=== PATIENT | male | born 1980 | race Caucasian/White ===

== ENCOUNTER → 2020-10-12 10:13 | Outpatient (CLI) | payer OTHER, SELFPAY ==
--- NOTE | ~2020-10-12 | US_ITS ---
EXAMINATION: US abdomen complete DATE: 10/12/2020 11:30 INDICATION: Right upper quadrant abdominal pain TECHNIQUE: Multiple grayscale and Doppler ultrasound images of the abdomen were obtained. COMPARISON: None available FINDINGS: Bowel gas obscures visualization of the pancreas. The visualized portions of the pancreas a re unremarkable. The liver demonstrates increased echogenicity, heterogenous echotexture, and decreas ed through transmission. No surface nodularity. Normal hepatopetal flow in the main portal vein. The gallbladder is normal with no abnormal wall thickening, pericholecystic fluid or stones. The normal c ommon bile duct measures 3 mm. There was no sonographic Florez sign. The visualized portions of the a viviana and inferior vena cava are normal. The right kidney measures 15.2 x 7.6 x 7.1 cm. The left kidney measures 13.9 x 6.5 x 6.9 cm. The kidn eys demonstrate normal parenchymal echogenicity. There is no hydronephrosis. The spleen is normal in appearance and measures 11.5 cm. IMPRESSION: 1. No sonographic correlate for the patient's symptoms. 2. Diffuse hepatic steatosis. Reviewed, dictated and finalized at location B.
--- NOTE | ~2020-10-12 | XR_ITS ---
EXAMINATION: XR UGIAC wo kub DATE: 10/12/2020 12:09 INDICATION: Right upper quadrant pain and nausea TECHNIQUE: The patient drank thick barium, gas-producing crystals, and thin barium. Fluoroscopy of th e esophagus, stomach, and proximal small bowel were performed. Fluoroscopy exposure time was 1.5 lorna kam. The DAP for this procedure was 12.82 Gycm2. COMPARISON: None. FINDINGS: There is no mass or stricture of the esophagus. Esophageal motility is normal. There is no hiatal hernia. There was no gastroesophageal reflux with provocative maneuvers. The stomach and proxi mal small bowel show normal folding patterns. IMPRESSION: 1. Unremarkable upper GI Reviewed, dictated and finalized at location B. IMPRESSION: 1. Unremarkable upper GI
== END ==
PROVIDERS: Visit Provider Emergency Medicine
DX: R10.9 Unspecified abdominal pain (principal); K21.9 Gastro-esophageal reflux disease without esophagitis; K76.0 Fatty (change of) liver, not elsewhere classified
CPT/HCPCS: 74246; 76700

== ENCOUNTER 2020-11-24 16:52 | Emergency (ER) | payer OTHER, SELFPAY ==
--- NOTE | ~2020-11-24 | XR_ITS ---
EXAMINATION: XR chest 2V DATE: 11/24/2020 17:25 INDICATION: Asthma presenting with mid sternal chest pain TECHNIQUE: PA and lateral views of the chest were obtained. COMPARISON: None FINDINGS: The lungs are clear with no focal airspace opacities, pulmonary edema, pleural effusion or pneumothor ax. The cardiomediastinal silhouette is normal. Mild thoracic spondylosis. IMPRESSION: 1. No acute cardiopulmonary disease. Reviewed, dictated and finalized at location A.
--- NOTE | 2020-11-24 16:56 | ECG_ITS ---
Measurements Intervals Jeffrey Rate: 85 P: 39 MA: 158 QRS: 60 QRSD: 88 T: 15 QT: 357 QTc: 427 Interpretive Statements SINUS RHYTHM NORMAL ECG Electronically Signed On 11-24-2020 17:05:13 CDT by Lyndon Zamorano D.O.
[2020-11-24 16:57] VITALS: BP 160/92; PULSE 86; RESP 16; TEMP 37.1; O2SAT 96
[2020-11-24 17:11] LABS: Basophils Percent Auto 0.5 % (0.2-1.2); Eosinophils Absolute Auto 0.1 K/mm3 (0-0.3); Eosinophils Percent Auto 1.4 % (0-4.4); Hematocrit 46.3 % (42.0-52.0); Hemoglobin 15.6 g/dL (14.0-18.0); Immature Granulocyte Absolute 0.01 K/mm3 (0.00-0.031); Immature Granulocyte Percent A 0.1 % (0-0.5); Lymphocytes Absolute Auto 1.76 K/mm3 (0.9-3.2); Lymphocytes Percent Auto 20.2 % (18.3-44.2); Mean Corpuscular HGB Conc 33.7 g/dl (32-36); Mean Corpuscular Hemoglobin 30.6 pg (26-34); Mean Corpuscular Volume 90.8 fl (80-100); Mean Platelet Volume 8.8 fl (7.4-10.4); Monocytes Absolute Auto 0.7 K/mm3 (0.1-0.6); Monocytes Percent Auto 7.8 % (2.6-8.5); Neutrophils Absolute Auto 6.1 K/mm3 (1.3-6.7); Platelet Count Result 328 k/mm3 (150-375); White Blood Count 8.7 K/mm3 (4.5-10.0)
[2020-11-24 17:20] LABS: Anion Gap 12 mmol/L (8-16); Blood Urea Nitrogen 11 mg/dL (9-20); Calcium 9.7 mg/dL (8.4-10.2); Carbon Dioxide 22 mmol/L (22-30); Chloride 106 mmol/L (98-107); Estimated CRCL calculation 106 ml/min; Estimated Glomerular Filt Rate > 60; Glucose 98 mg/dL (65-110); Potassium 3.4 mmol/L (3.4-5.0); Sodium 140 mmol/L (137-145)
[2020-11-24 17:21] LABS: INR 0.9
[2020-11-24 17:22] LABS: Partial Thromboplastin Time 24.1 SECONDS (22.3-36.8)
[2020-11-24 17:32] LABS: Troponin I < 0.012 ng/mL (0.000-0.034)
--- NOTE | 2020-11-24 19:50 | PC.NURSE ---
pt states he's going to step outside for some fresh air at this time. seen walking out to the parking lot.
[2020-11-24 20:51] LABS: Troponin I < 0.012 ng/mL (0.000-0.034)
[2020-11-24 21:36] VITALS: BP 143/80; PULSE 77; PULSE 82; RESP 15; O2SAT 98
[2020-11-24 22:50] VITALS: BP 128/74; PULSE 71; RESP 20; O2SAT 93
--- NOTE | 2020-11-24 23:08 | ED.CHESTPAIN ---
HPI - Chest Pain General Chief Complaint: Chest Pain Stated Complaint: cp Time Seen by Provider: 11/24/20 21:26 Source: patient and RN notes reviewed Mode of arrival: ambulatory Limitations: no limitations History of Present Illness HPI narrative: 40 years old white male presents with left chest pain and a productive cough started 3 days ago. Patient been not feeling well, feeling tired. History of asthma on albuterol treatment. Today work-up with fatigue and weakness. Patient is fully vaccinated with COVID-19. Patient is not sure if he been exposed to anybody with COVID-19 or not. Patient tested negative for Covid infection yesterday. Currently patient is not feeling well with intermittent coughing. No family history of coronary artery disease, patient does not smoke, drinks occasionally, does not use drugs. History of hypertension Review of Systems Review of Systems: CONSTITUTIONAL: Denies fever, chills, or sweats. EYES: Denies visual changes, redness, or discharge. ENT: Denies rhinorrhea, congestion, sore throat, or otalgia. CARDIOVASCULAR: Denies chest pain, palpitations, or edema. RESPIRATORY: Denies cough or dyspnea. GASTROINTESTINAL: Denies abdominal pain, nausea, vomiting, or diarrhea. GENITOURINARY: Denies dysuria or hematuria. SKIN: Denies rash or itching. MUSCULOSKELETAL: Denies back pain, joint pain, or myalgia. NEUROLOGIC: Denies headache, numbness, or weakness. PSYCHIATRIC: Denies anxiety or depression. Exam Narrative: General appearance: Well-developed, well-nourished Skin: Normal color Head: Normocephalic, nontraumatic Eyes: Clear conjunctiva ENT: Oropharynx normal, ears normal, nose normal Neck: Supple, nontender Chest and respiratory: Airway patent, no respiratory distress, no accessory muscle use Heart: Regular rate/rhythm Abdomen: Soft, nontender, no organomegaly, quiet bowel sounds Vascular: Normal peripheral pulses, normal capillary refill. Musculoskeletal: Normal range of motion, nontender back Neurologic: Alert and oriented ?3, [address] is normal as tested, no gross motor deficit Course Course Emergency Course: Stable Vital Signs Vital signs: Vital Signs Temperature 37.1 C 11/24/20 16:57 Pulse Rate 86 11/24/20 16:57 Respiratory Rate 16 11/24/20 16:57 Blood Pressure 160/92 H 11/24/20 16:57 Pulse Oximetry 96 11/24/20 16:57 Temperature 37.1 C 11/24/20 16:57 Pulse Rate 71 11/24/20 22:50 Respiratory Rate 20 11/24/20 22:50 Blood Pressure 128/74 11/24/20 22:50 Pulse Oximetry 93 11/24/20 22:50 MDM - Chest Pain MDM Narrative Medical decision making narrative: Patient does not have coronary artery disease risk factors. Viral infection is my concern. Although patient had negative rapid Covid test, my plan to get PCR ONE and discharge patient with decongestant and anticough medication. Lab Data Result diagrams: 11/24/20 17:03 11/24/20 17:02 Labs: Lab Results 11/24/20 11/24/20 11/24/20 Range/Units 17:02 17:02 17:03 WBC 8.7 (4.5-10.0) K/mm3 RBC 5.10 (4.6-6.20) M/mm3 Hgb 15.6 (14.0-18.0) g/dL Hct 46.3 (42.0-52.0) % MCV 90.8 (80-100) fl MCH 30.6 (26-34) pg MCHC 33.7 (32-36) g/dl RDW 12.0 (11.5-14.5) % Plt Count 328 (150-375) k/mm3 MPV 8.8 (7.4-10.4) fl Immature Gran % (Auto) 0.1 (0-0.5) % Neut % (Auto) 70.0 (45.5-73.1) % Lymph % (Auto) 20.2 (18.3-44.2) % Swift % (Auto) 7.8 (2.6-8.5) % Eos % (Auto) 1.4 (0-4.4) % Baso % (Auto) 0.5 (0.2-1.2) % Lymph # (Auto) 1.76 (0.9-3.2) K/mm3 Swift # (Auto) 0.7 H (0.1-0.6) K/mm3 Eos # (Auto) 0.1 (0-0.3) K/mm3 Baso # (Auto) 0.
[2020-11-24 23:45] VITALS: BP 123/87; PULSE 78; RESP 14; O2SAT 94
[2020-11-25 15:32] LABS: SARS-CoV-2 RNA PCR Negative
== END 2020-11-24 23:45 | disposition home or self-care (01) ==
PROVIDERS: Emergency Provider Emergency Medicine; PCP Emergency Medicine
DX: R07.89 Other chest pain (principal); J98.8 Other specified respiratory disorders; Z20.822 Contact with and (suspected) exposure to COVID-19
CPT/HCPCS: 36415; 71046; 80048; 84484; 85025; 85610; 85730; 93005; 99284; C9803; U0003; U0005

== ENCOUNTER → 2021-11-03 08:35 | Outpatient (CLI) | payer SELFPAY ==
--- NOTE | ~2021-11-03 | CT_ITS ---
EXAMINATION: CT abdomen pelvis w con DATE: 11/03/2021 09:11 INDICATION: Burning in the anal and groin areas for one month. Pelvic pressure. TECHNIQUE: Computed tomography (CT) of the abdomen and pelvis was performed with 100 CC Omnipaque 350 intravenous contrast. Automated exposure control and iterative reconstruction technique were employe d. Exam dose: 1298.79 mGy-cm total exam DLP. COMPARISON: 10/12/2020 complete abdominal ultrasound examination FINDINGS: The lung bases are clear of infiltrate or consolidation. Normal heart size. No pericardial or pleural effusion. Prominent diffuse hepatic steatosis. No hepatic space-occupying mass lesion. The gallbladder appears unremarkable. No bile duct or pancreatic duct dilatation. No pancreatic mass lesion or calcification. Normal splenic size. Normal morphology of the adrenal glands. No renal mass lesion or urinary tract calculus or hydroureteronephrosis. Moderate prostate enlargement. There is moderate diffuse bladder wall thickening which may be due to prostate enlargement and/or relatively underdistended urinary bladder. Small fat-containing left inguinal hernia. Normal caliber of the abdominal aorta. No intraperitoneal or retroperitoneal or pelvic mass lesion or adenopathy or ascites. There are some shoddy nonenlarged inguinal lymph nodes bilaterally. No renal mass lesion or inflammatory change in the perianal area is evident. No bowel obstruction, bowel wall thickening, pneumatosis or intraperitoneal free air. No suspicious osteolytic or osteoblastic lesions. IMPRESSION: Prominent hepatic steatosis Moderate prostate enlargement Small fat-containing left inguinal hernia Reviewed, dictated and finalized at Location A. Reviewed, dictated and finalized at location B.
[2021-11-09 10:31] LABS: Estimated Glomerular Filt Rate > 60
== END ==
PROVIDERS: PCP Emergency Medicine; Visit Provider Emergency Medicine
DX: K62.89 Other specified diseases of anus and rectum (principal); K76.0 Fatty (change of) liver, not elsewhere classified; N40.0 Benign prostatic hyperplasia without lower urinary tract symptoms; K44.9 Diaphragmatic hernia without obstruction or gangrene
CPT/HCPCS: 36415; 74177; 82565; Q9967

== ENCOUNTER 2022-03-07 08:42 | Outpatient (CLI) | payer OTHER, SELFPAY ==
--- NOTE | 2022-04-01 17:40 | WPDHOMESLEEP ---
Sleep Study - Home Unattended Date of Study: 03/07/22 Ordering Provider: Leonor Toribio NP Interpreting Provider: Gracy Coley, DO Home Sleep Study Type: Watch PAT Height: 1.78 m Weight: 108.862 kg Body Mass Index: 34.4 Neck Circumference (inches): 17.5 [place]: 3 Reason for Sleep Study Previously diagnosed with GLORIA. Had CPAP. Had GLORIA surgery in 2006. Now has unrefreshing sleep, morning headaches, witnessed apneas Sleep History The patient is a 41-year-old male with hypertension, GERD, anxiety, asthma, seasonal allergies, history of tobacco use and previously diagnosed sleep apnea that had a sleep study ordered by his primary care for evaluation of sleep apnea. The patient frequently awakens from sleep short of breath. He occasionally awakens at night with heartburn, belching or cough. He frequently snores loud enough that others complain. He occasionally has trouble sleeping when he has a cold. He frequently wakes up gasping for air throughout the night. He occasionally has breathing problems at night observed by himself or others. He occasionally sweats excessively at night. He occasionally has heart palpitations or irregular heartbeats during the night. He denies falling asleep during the day and while driving. He denies cataplexy. He occasionally has trouble at school or work due to sleepiness. He rarely feels unable to move while waking up or falling asleep. He occasionally experiences vivid dreamlike scenes upon awakening or falling asleep. He occasionally feels afraid of going to sleep. He occasionally has nightmares and occasionally remembers his dreams. He occasionally has thoughts racing through his mind. He occasionally feels sad or depressed. He frequently has anxiety. He frequently has muscular tension. He frequently notices parts of his body jerk. He occasionally kicks during the night. He occasionally has crawling and aching feelings in his legs but rarely has leg pain during the night. He occasionally grinds his teeth during sleep but rarely awakens with morning jaw pain. He is occasionally bothered by pain during the day but never awakened by pain during the night. He frequently wakes up feeling stiff in morning. He occasionally wakes up with sore or achy muscles. He occasionally wakes up pain in the neck, spine other joints. The patient goes to bed between 10-11 p.m. on weekdays and between midnight to 2:00 a.m. on the weekends. He can take him 30 minutes to 2-1/2 hours to fall asleep. He wakes up 1-2 times throughout the night to urinate. He can take him 30 minutes to several hours to fall back asleep. He wakes up at 6:00 a.m. on weekdays and between 7-8 a.m. on the weekends. He typically gets 5-6 hours of sleep per night. He stays in bed for 10-20 minutes after waking up in the morning. He currently lives with his and children. He does not consume any caffeinated beverages within 2 hours of bedtime. He does not engage in physical exercise before bedtime. He will watch television before falling asleep. He denies taking naps in the afternoon with eating. He drinks 2 caffeinated beverages per day. He drinks 1-2 alcoholic beverages per week. He quit smoking cigarettes in 2002. He denies recreational drug use. [facility] Past Medical History Medical History Abnormal CT scan Allergies Anxiety Anxiety Asthma Asthma BMI 33.0-33.9,adult Chronic GERD COVID-19 (~01/29/22) Encounter to establish care Erectile dysfunction Excess sun exposure Fatigue Fatty liver Headache History of obstructive sleep apnea HTN (hypertension) Hx of skin malignancy Hypersomnia Hypertension IBS (irritable bowel syndrome) GLORIA (obstructive sleep apnea) Snoring Surgical History Surgical History H/O colonoscopy H/O endoscopy H/O hernia repair H/O uvulectomy Family History Family History (Re
[2022-04-01 17:53] VITALS: BMI 34.4
== END 2022-03-09 10:29 | disposition home or self-care (01) ==
LOC: ANHCSM 08:44
PROVIDERS: PCP Nurse Practitioner Family; Visit Provider Nurse Practitioner Family
DX: G47.10 Hypersomnia, unspecified (principal); R06.83 Snoring; G47.33 Obstructive sleep apnea (adult) (pediatric)
CPT/HCPCS: 95800

== ENCOUNTER 2022-11-07 01:29 | Day surgery (SDC) | payer OTHER, SELFPAY ==
[2022-10-27 11:26] VITALS: BMI 29.9
--- NOTE | 2022-11-04 17:36 | WPDANESEPP ---
Anes - Eval Pre Procedure Procedure: Operation Date: 11/07/22 11:00 Proposed Procedures p Esophagogastroduodenoscopy & Colonoscopy - Per Myers MD Date/Time: 11/04/22 17:36 Pre Op Diagnosis: heartburn, abdominal distension, rectal bleed, Patient Data Age: 42 Gender: M Height: 1.8 m Weight: 97.5 kg Allergies Allergy/AdvReac Type Severity Reaction Status Date / Time Penicillins Allergy Unknown Unknown Verified 10/27/22 11:25 Home Medications Medication Instructions Recorded Confirmed Type albuterol sulfate 90 mcg/actuation 1 inh inhalation Q6H 01/20/22 10/27/22 History aerosol inhaler amlodipine 2.5 mg tablet 2.5 mg PO DAILY #90 tabs 01/20/22 10/27/22 Rx cetirizine 10 mg tablet (Zyrtec) 10 mg PO DAILY PRN Allergy Symptoms 01/20/22 10/27/22 History sildenafil [Viagra] PO 01/20/22 09/26/22 History fluticasone 500 mcg-salmeterol 50 1 inh inhalation Q12H #60 ea 04/06/22 10/27/22 Rx mcg/dose blistr powdr for inhalation (Advair Diskus) losartan 100 1 tablet PO DAILY #90 tabs 04/06/22 10/27/22 Rx mg-hydrochlorothiazide 25 mg tablet omeprazole 40 mg capsule,delayed 40 mg PO DAILY #30 caps 09/26/22 10/27/22 Rx release sodium,potassium,mag sulfates 17.5 See Rx Instructions PO .COMPLEX 10/06/22 10/27/22 Rx gram-3.13 gram-1.6 gram oral soln #354 mL (Suprep Bowel Prep Kit) bupropion HCl 150 mg 24 hr tablet, 150 mg PO QAM #90 tabs 10/17/22 10/27/22 Rx extended release (Wellbutrin XL) Patient hx anesthesia problems: none Family hx anesthesia problems: none Results Review: All pre-operative results and documents have been reviewed as part of the pre-operative evaluation. REPLACED BY [facility] Past Medical History Medical History (Updated 09/26/22 @ 12:07 by Valeria Martinez APRN) Abnormal CT scan Allergies Altered bowel habits Anxiety Anxiety Asthma Asthma Bloating BMI 31.0-31.9,adult BMI 33.0-33.9,adult Bright red blood per rectum Chronic GERD COVID-19 (~01/29/22) Elevated fasting glucose Encounter to establish care Erectile dysfunction Excess sun exposure Fatigue Fatty liver Headache Heartburn History of obstructive sleep apnea HTN (hypertension) Hx of skin malignancy Hyperlipidemia Hypersomnia Hypertension IBS (irritable bowel syndrome) Mucus in stool Obesity (BMI 30.0-34.9) GLORIA (obstructive sleep apnea) Pain of right scapula Proteinuria Snoring Surgical History Surgical History H/O colonoscopy H/O endoscopy H/O hernia repair H/O uvulectomy Family History Family History Mother Alcoholism Depression Anxiety Grandparent Alcoholism Cancer Heart disease Cerebrovascular accident Father Cancer Diabetes mellitus Hypertension Heart disease Other Lung cancer Social History Social History Smoking status: Former smoker Tobacco type: cigarettes Alcohol intake: current Alcohol use details: socially Substance use: never Substance use type: does not use Lack of Transportation: No Lack of Food: Never True Current Housing: I Have Housing Concerned About Future Housing: No Difficulty Paying Gas/Electric Bills: No Difficulty Paying for Meds: No Currently Unemployed: No Education: Master's Degree or Higher Difficulty w/ Childcare or Family Care: No Living arrangements: with family Occupation/Education: occupation Additional occupation/education comments: [employer] Spiritual care concerns: No Exam Day of Procedure 11/04/22 17:36
[2022-11-07 09:51] VITALS: BP 146/90; PULSE 84; RESP 18; TEMP 36.3; O2SAT 99
[2022-11-07] MEDS: LACTATED RINGERS 1,000 ML 150 ML IV CONT (09:53)
--- NOTE | 2022-11-07 10:29 | PM.HPGS ---
History of Present Illness History of Present Illness Consent: Risks, benefits, and alternatives have been discussed and questions answered. Patient agrees to proceed with procedure. Chief complaint: abdominal pain, change in bowel habit Narrative: Giovani Thompson is a 42 year old male Referred for both colonoscopy an EGD. Patient has had difficulty with his bowel habits for many years. He has regular bowel movements PE. Frequent mucus stools. Sometimes will have intermittent diarrhea. Occasionally will have streaks of blood in it. He complains rather vague epigastric discomfort. In the past has been treated for possible acid reflux. He may have had heartburn in the past but denies a strict heartburn at present. Medications included trial of omeprazole 40mg p.o. daily which appears to help the heartburn. He states while in the he had a colonoscopy and EGD. The colonoscopy apparently was unremarkable. States an EGD performed elsewhere several years ago revealed gastric polyps. patient's family history is significant for an uncle with ulcerative colitis. Patient presents today for both colonoscopy and EGD. Review of Systems Review of Systems: Review of systems noncontributory. [facility] Past Medical History Medical History (Updated 09/26/22 @ 12:07 by Valeria Martinez APRN) Abnormal CT scan Allergies Altered bowel habits Anxiety Anxiety Asthma Asthma Bloating BMI 31.0-31.9,adult BMI 33.0-33.9,adult Bright red blood per rectum Chronic GERD COVID-19 (~01/29/22) Elevated fasting glucose Encounter to establish care Erectile dysfunction Excess sun exposure Fatigue Fatty liver Headache Heartburn History of obstructive sleep apnea HTN (hypertension) Hx of skin malignancy Hyperlipidemia Hypersomnia Hypertension IBS (irritable bowel syndrome) Mucus in stool Obesity (BMI 30.0-34.9) GLORIA (obstructive sleep apnea) Pain of right scapula Proteinuria Snoring Surgical History Surgical History H/O colonoscopy H/O endoscopy H/O hernia repair H/O uvulectomy Family History Family History Mother Alcoholism Depression Anxiety Grandparent Alcoholism Cancer Heart disease Cerebrovascular accident Father Cancer Diabetes mellitus Hypertension Heart disease Other Lung cancer Social History Social History Smoking status: Former smoker Tobacco type: cigarettes Alcohol intake: current Alcohol use details: socially Substance use: never Substance use type: does not use Lack of Transportation: No Lack of Food: Never True Current Housing: I Have Housing Concerned About Future Housing: No Difficulty Paying Gas/Electric Bills: No Difficulty Paying for Meds: No Currently Unemployed: No Education: Master's Degree or Higher Difficulty w/ Childcare or Family Care: No Living arrangements: with family Occupation/Education: occupation Additional occupation/education comments: [employer] Spiritual care concerns: No Meds Home Medications and Allergies Home Medications Medication Instructions Recorded Confirmed Type albuterol sulfate 90 mcg/actuation 1 inh inhalation Q6H 01/20/22 11/07/22 History aerosol inhaler amlodipine 2.5 mg tablet 2.5 mg PO DAILY #90 tabs 01/20/22 11/07/22 Rx cetirizine 10 mg tablet (Zyrtec) 10 mg PO DAILY PRN Allergy Symptoms 01/20/22 11/07/22 History sildenafil [Viagra] 1 tablet PO DAILY PRN Erectile 01/20/22 11/07/22 History Dysfunction fluticasone 500 mcg-salmeterol 50 1 inh inhalation Q12H #60 ea 04/06/22 11/07/22 Rx mcg/dose blistr powdr for inhalation (Advair Diskus) losartan 100 1 tablet PO DAILY #90 tabs 04/06/22 11/07/22 Rx mg-hydrochlorothiazide 25 mg tablet omeprazole 40 mg capsule,delayed 40 mg PO DAILY #30 caps 09/26/22 11/07/22 Rx
--- NOTE | 2022-11-07 10:37 | P.PNAN_ITS ---
Anes - Eval Final PreProcedure Day of Procedure 11/07/22 10:37 Patient weight: overweight Heart: regular rate and rhythm Lungs: clear to auscultation Airway: Mallampati scale class II Neurological: alert and oriented Last oral intake: >/= 8 hours ASA classification: III Emergent: no Anesthetic plan: proceed Anesthesia type and monitoring: general GIVS and standard monitoring Results Review: All pre-operative results and documents have been reviewed as part of the pre- operative evaluation. Informed Consent: The patient's anesthetic plan and its attendant risks and benefits were discussed with the patient/family/POA. Questions were solicited and answers provided to the satisfaction of the patient/family/POA.
--- NOTE | 2022-11-07 11:20 | SUR.OPER ---
EGD began at 1113 and ended at 1116. Colonoscopy began at 1125.
[2022-11-07] MEDS: SIMETHICONE ORAL SUSPENSION 20 MG/0.3 ML 30 ML BOTTLE 0.6 ML IRRIGATION (11:29)
[2022-11-07 11:38] VITALS: BP 119/73; PULSE 96; RESP 18; O2SAT 96
[2022-11-07 11:48] VITALS: BP 124/75; PULSE 75; RESP 25; O2SAT 95
[2022-11-07 11:58] VITALS: BP 125/76; PULSE 70; RESP 18; O2SAT 93
== END 2022-11-07 12:04 | disposition home or self-care (01) ==
PROVIDERS: PCP Nurse Practitioner Family; Visit Provider Internal Medicine Gastroenterology
PROC: 0DJ08ZZ Inspection of Upper Intestinal Tract, Via Natural or Artificial Opening Endoscopic (ICD-10-PCS; CPT 43235; principal; 2022-11-07 11:00)
DX: Z12.11 Encounter for screening for malignant neoplasm of colon (principal); K64.8 Other hemorrhoids; R19.5 Other fecal abnormalities; K58.9 Irritable bowel syndrome, unspecified; K21.9 Gastro-esophageal reflux disease without esophagitis; Z79.51 Long term (current) use of inhaled steroids; J45.909 Unspecified asthma, uncomplicated; F41.9 Anxiety disorder, unspecified; I10 Essential (primary) hypertension; Z85.828 Personal history of other malignant neoplasm of skin; E78.5 Hyperlipidemia, unspecified; G47.10 Hypersomnia, unspecified; E66.9 Obesity, unspecified; Z68.29 Body mass index [BMI] 29.0-29.9, adult; Z87.891 Personal history of nicotine dependence; G47.33 Obstructive sleep apnea (adult) (pediatric)
CPT/HCPCS: 45380; 43239; 87081; 88305; J2704; J7120

== ENCOUNTER → 2024-05-07 13:47 | Outpatient (CLI) | payer OTHER, SELFPAY ==
--- NOTE | ~2024-05-07 | XR_ITS ---
EXAMINATION: XR chest 2V DATE: 05/07/2024 14:00 INDICATION: Cough TECHNIQUE: PA and lateral views of the chest were obtained. COMPARISON: Chest radiograph dated 11/24/2020 FINDINGS: The lungs remain clear with no focal airspace opacities, pulmonary edema, pleural effusion or pneumot horax. The cardiomediastinal silhouette is normal. Mild to moderate thoracic spondylosis. IMPRESSION: 1. No acute cardiopulmonary disease. Reviewed, dictated and finalized at location A. [employer]
== END ==
PROVIDERS: PCP Nurse Practitioner Family; Visit Provider Nurse Practitioner Family
DX: R05.9 Cough, unspecified (principal); R61 Generalized hyperhidrosis; R53.83 Other fatigue
CPT/HCPCS: 71046